=== PATIENT | male | born 1955 | race Caucasian/White ===

== ENCOUNTER → 2017-04-10 | Day surgery (SDC) | payer OTHER ==
[2017-04-09 12:01] LABS: ABSOLUTE BASOPHILS 0.1 thou/uL (0.0-0.2); ABSOLUTE EOSINOPHILS 0.7 thou/uL (0.0-0.7); ABSOLUTE LYMPHOCYTES 2.3 thou/uL (0.8-5.3); ABSOLUTE MONOCYTES 0.5 thou/uL (0.0-1.2); ABSOLUTE NEUTROPHILS 6.1 thou/uL (1.6-8.1); BASOPHILS 0.7 %; EOSINOPHILS 6.9 %; HEMOGLOBIN 14.5 gm/dL (14.0-18.0); MCH 31.2 pg (26.0-34.0); MCHC 33.7 g/dL (28.0-37.0); MCV 92.6 fL (80.0-100.0); MONOCYTES 5.5 %; NUCLEATED RBCS 0 /100WBC; PLATELET COUNT* 207 thou/uL (150-400); POLYS 62.9 %; RBC 4.64 mil/uL (4.50-6.00); RDW-CV 14.2 % (10.5-14.5); WBC 9.7 thou/uL (4.0-11.0)
[2017-04-09 12:13] LABS: ALBUMIN 4.2 g/dL (3.4-5.0); CALCIUM 9.9 mg/dL (8.5-10.1); CREATININE 1.1 mg/dL (0.6-1.3); POTASSIUM 4.8 mmol/L (3.5-5.1); TOTAL BILIRUBIN 0.3 mg/dL (<0.1-1.0); TOTAL PROTEIN 8.8 g/dL (6.4-8.2)
[~2017-04-10] MED LIST: AMARYL4 MG PO; ASPIRIN EC81 M1 PO; AUGMENTIN 875-1 EACH PO; BACTRIM DS TAB1 EACH PO; CARDURA2 MG PO; ELIQUIS2.5 MG PO; FLOMAX0.4 MG PO; GABAPENTIN100 MG; GLUCOPHAGE XR500 MG PO; HYDROCODON-ACE1 EAC7; IBUPROFEN 800800 M1 PO; INSULIN; LANTUS SUBQ; LEVSIN0.125 MG SUBLING; LOPRESSOR25 PO; NEURONTIN 300300 M1 PO; NORCO 10-325 T1 EACH PO; NORCO 5-325 TA1 EACH PO; NOVOLOG100 UNIT/1 SUBQ; PERCOCET 5-3251 EACH PO; PRAVASTATIN SOD10 MG; PROAIR HFA8.5 GM INH; SENNA LAXATIVE25 MG PO; TAMSULOSIN HCL0.4 M1 PER TUBE; TRAMADOL 50 MG50 MG PO; ZOFRAN ODT4 MG PO; ZOFRAN4 MG PO
--- NOTE | ~2017-04-10 | OP ---
[address] [address] OPERATIVE REPORT Name: LOLIS CLEANING Room: [facility]#: [id number] Admission: 04/10/17 Attend Phys: Shin Kendrick MD Discharge: Date of : 57 Report #: [id number] THIS REPORT FOR: //name// For operative report details, please see the post operative note. By: 1044Medical Records Staff KASSIDY /PRO
--- NOTE | 2017-04-10 14:15 | EKG ---
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 04/10/17 1415 1142 1142 Agustin Miner MD, FACC /EPI
== END | disposition home or self-care (01) ==
LOC: M.SUR
PROVIDERS: Urology
DX: N20.0 Calculus of kidney (principal)